=== PATIENT | female | born 1985 | race Caucasian/White ===

== ENCOUNTER 2016-07-02 10:00 | Emergency (ER) | payer BC, OTHER ==
[2016-07-02 10:55] VITALS: BP 123/75
--- NOTE | 2016-07-02 11:24 | UC ---
FLU HPI - HPI Summary HPI Summary: FATIGUE COUGH ACHES SINCE YESTERDAY - History of Current Complaint Chief Complaint: UCGeneralIllness Stated Complaint: FLU SYMPTOMS Time Seen by Provider: 07/02/16 10:59 Hx Obtained From: Patient Hx Last Menstrual Period: 06/11/16 Onset/Duration: Sudden Onset, Lasting Days, Still Present Severity Currently: Moderate Severity Initially: Moderate Associated Signs & Symptoms: Positive: F/C, Myalgia, Cough, Vomiting Related Hx: Possible Flu/Infectious Exposure - Allergy/Home Medications Allergies/Adverse Reactions: Allergies Allergy/AdvReac Type Severity Reaction Status Date / Time Amoxicillin [From Augmentin] Allergy Severe Hives Verified 07/02/16 10:55 Clavulanic Acid Allergy Severe Hives Verified 07/02/16 10:55 [From Augmentin] Penicillins Allergy Severe Hives Verified 07/02/16 10:55 Latex Allergy Intermediate Rash Verified 07/02/16 10:55 PMH/Surg Hx/FS Hx/Imm Hx Previously Healthy: Yes Endocrine History Of: Denies: Diabetes Cardiovascular History Of: Denies: Hypertension, Pacemaker/ICD GI/ History Of: Denies: Renal Disease - Surgical History Surgical History: Yes Surgery Procedure, Year, and Place: TUBAL LIGATION 2011 - Family History Known Family History: Positive: Cardiac Disease, Diabetes, Respiratory Disease - ASTHMA - Social History Occupation: Employed Full-time Lives: With Family Alcohol Use: Rare Substance Use Type: None Smoking Status (MU): Former Smoker Type: Cigarettes Amount Used/How Often: 1/2 pack daily When Did the Patient Quit Smoking/Using Tobacco: 5 months ago Review of Systems Constitutional: Chills, Fatigue Skin: Negative Eyes: Negative ENT: Nasal Discharge Respiratory: Cough Cardiovascular: Negative Gastrointestinal: Vomiting - RESOLVED Genitourinary: Negative Motor: Negative Neurovascular: Negative Musculoskeletal: Negative Neurological: Negative Psychological: Negative All Other Systems Reviewed And Are Negative: Yes Physical Exam Triage Information Reviewed: Yes Appearance: No Pain Distress, Well-Nourished, Ill-Appearing - MILD Vital Signs: Initial Vital Signs Temp 97.9 F 07/02/16 10:50 Pulse 68 07/02/16 10:50 Resp 16 07/02/16 10:50 BP 123/75 07/02/16 10:50 Pulse Ox 100 07/02/16 10:50 Vital Signs Reviewed: Yes Eye Exam: Normal ENT Exam: Normal ENT: Positive: Normal ENT inspection, Hearing grossly normal, Pharynx normal, TMs normal Dental Exam: Normal Neck exam: Normal Neck: Positive: Supple, Nontender, No Lymphadenopathy Respiratory Exam: Normal Respiratory: Positive: Chest non-tender, Lungs clear, Normal breath sounds, No respiratory distress Cardiovascular Exam: Normal Cardiovascular: Positive: RRR, No Murmur Abdominal Exam: Normal Abdomen Description: Positive: Nontender, No Organomegaly Musculoskeletal Exam: Normal Musculoskeletal: Positive: Strength Intact, ROM Intact Neurological Exam: Normal Psychological Exam: Normal Psychological: Positive: Normal Response To Family Skin Exam: Normal Flu Course/Dx - Differential Dx/Diagnosis Differential Diagnosis/HQI/PQRI: Influenza, Upper Respiratory Infection Provider Diagnoses: UPPER RESPIRATORY INFECTION. VIRAL SYNDROME Discharge - Discharge Plan Condition: Stable Disposition: HOME Patient Education Materials: Upper Respiratory Infection (ED), Viral Syndrome ( ED) Forms: *Work Release Referrals: David ARCHULETA,Zackery Winn [Primary Care Provider] -
== END 2016-07-02 11:26 | disposition home or self-care (01) ==
LOC: UCCORT 10:00
DX: J06.9 Acute upper respiratory infection, unspecified (principal); B34.9 Viral infection, unspecified; Z88.1 Allergy status to other antibiotic agents; Z88.0 Allergy status to penicillin; Z87.891 Personal history of nicotine dependence
CPT/HCPCS: 87502; 99211; G0463

== ENCOUNTER 2016-12-14 13:24 | Emergency (ER) | payer SELFPAY ==
[2016-12-14 14:28] VITALS: BP 125/59
--- NOTE | 2016-12-14 15:08 | UC ---
Respiratory Complaint HPI - HPI Summary HPI Summary: was treated for sinusitis for amount 2 months on and off, now has sever cough and tightness in the upper chest. - History of Current Complaint Chief Complaint: UCRespiratory Stated Complaint: COUGH CONGESTION Time Seen by Provider: 12/14/16 14:25 Hx Obtained From: Patient Hx Last Menstrual Period: 12/02/16 Onset/Duration: Gradual Onset, Lasting Weeks Timing: Constant Severity Initially: Mild Severity Currently: Moderate Character: Cough: Nonproductive Aggravating Factors: Exertion, Deep Breaths, Recumbent Position Alleviating Factors: Nothing Associated Signs And Symptoms: Positive: Wheezing, URI - Allergies/Home Medications Allergies/Adverse Reactions: Allergies Allergy/AdvReac Type Severity Reaction Status Date / Time Amoxicillin [From Augmentin] Allergy Severe Hives Verified 07/08/16 18:52 Clavulanic Acid Allergy Severe Hives Verified 07/08/16 18:52 [From Augmentin] Penicillins Allergy Severe Hives Verified 07/08/16 18:52 Latex Allergy Intermediate Rash Verified 07/08/16 18:52 Cephalexin [From Keflex] Allergy Hives Verified 12/14/16 14:30 Sulfa Antibiotics Allergy See Comment Verified 12/14/16 14:29 PMH/Surg Hx/FS Hx/Imm Hx Previously Healthy: Yes - Surgical History Surgical History: Yes Surgery Procedure, Year, and Place: TUBAL LIGATION 2011 - Family History Known Family History: Positive: Cardiac Disease, Diabetes, Respiratory Disease - ASTHMA - Social History Alcohol Use: None Substance Use Type: None Smoking Status (MU): Never Smoked Tobacco Type: Cigarettes Amount Used/How Often: 1/2 pack daily When Did the Patient Quit Smoking/Using Tobacco: 01/2016 - Immunization History Most Recent Influenza Vaccination: no Review of Systems Constitutional: Negative Skin: Negative Eyes: Negative ENT: Ear Ache Respiratory: Shortness Of Breath, Cough Cardiovascular: Negative Gastrointestinal: Negative Genitourinary: Negative Motor: Negative Neurovascular: Negative Musculoskeletal: Negative Neurological: Negative Psychological: Negative Is Patient Immunocompromised?: No All Other Systems Reviewed And Are Negative: Yes Physical Exam Triage Information Reviewed: Yes Appearance: No Pain Distress, Well-Nourished, Ill-Appearing Vital Signs: Initial Vital Signs Temp 98.5 F 12/14/16 14:24 Pulse 82 12/14/16 14:24 Resp 16 12/14/16 14:24 BP 125/59 12/14/16 14:24 Pulse Ox 100 12/14/16 14:24 Vital Signs Reviewed: Yes Eye Exam: Normal ENT Exam: Normal ENT: Positive: Pharynx normal, TM bulging Dental Exam: Normal Neck exam: Normal Neck: Positive: Supple, Nontender, No Lymphadenopathy Respiratory Exam: Normal Respiratory: Positive: Chest non-tender, No respiratory distress, No accessory muscle use, Wheezing, Inspiration Cardiovascular: Positive: RRR, No Murmur, Pulses Normal Abdominal Exam: Normal Abdomen Description: Positive: Nontender, No Organomegaly, Soft Bowel Sounds: Positive: Present Musculoskeletal Exam: Normal Neurological Exam: Normal Psychological Exam: Normal Skin Exam: Normal UC Diagnostic Evaluation - Laboratory O2 Sat by Pulse Oximetry: 100 Respiratory Course/Dx - Course Course Of Treatment: hx obtained, exam performed ,meds reviewed, treated for bronchospasm and serous otitis, patient refused prednisone - Differential Dx/Diagnosis Differential Diagnosis/HQI/PQRI: Bronchitis, Influenza, Laryngitis, Sinusitis Provider Diagnoses: bronchospasm. serous otitis bilateral Discharge - Discharge Plan Condition: Stable Disposition: HOME Prescriptions: Albuterol HFA INHALER* [Ventolin HFA Inhaler*] 2 puff INH Q4H PRN #1 mdi PRN Reason: Cough Patient Education Materials: Bronchospasm (ED), Serous Otitis Media (ED) Referrals: David ARCHULETA,Zackery Winn [Primary Care Provider] - Additional Instructions: 1. take the Daily antihistamine and use the albuterol as needed. 2. Increase fluid intake and self massage your neck to increase lymph flow. 3. Follow up as needed.
== END 2016-12-14 15:20 | disposition home or self-care (01) ==
LOC: UCCORT 13:24
DX: J98.01 Acute bronchospasm (principal); H65.93 Unspecified nonsuppurative otitis media, bilateral; Z88.0 Allergy status to penicillin; Z88.2 Allergy status to sulfonamides; Z88.1 Allergy status to other antibiotic agents; Z91.040 Latex allergy status; Z87.891 Personal history of nicotine dependence
CPT/HCPCS: 99212; G0463

== ENCOUNTER 2017-03-30 09:04 | Emergency (ER) | payer MEDICAID, OTHER ==
[2017-03-30 09:28] VITALS: BP 118/68
--- NOTE | 2017-03-30 10:02 | UC ---
Throat Pain/Nasal Cecilio HPI - HPI Summary HPI Summary: Sore throat, congestion, cough for 5 days. Non smoker. NO fever. Rapid strep was neg at pcp. - History of Current Complaint Chief Complaint: UCRespiratory Stated Complaint: SORE THROAT Time Seen by Provider: 03/30/17 09:44 Hx Obtained From: Patient Hx Last Menstrual Period: 03/03/17 Onset/Duration: Gradual Onset, Lasting Days Severity: Moderate Cough: Nonproductive Associated Signs & Symptoms: Positive: Dysphagia, Hoarseness, Sinus Discomfort, Nasal Discharge. Negative: Fever, Vomiting, Rash - Allergies/Home Medications Allergies/Adverse Reactions: Allergies Allergy/AdvReac Type Severity Reaction Status Date / Time Amoxicillin [From Augmentin] Allergy Severe Hives Verified 03/30/17 09:28 Clavulanic Acid Allergy Severe Hives Verified 03/30/17 09:28 [From Augmentin] Penicillins Allergy Severe Hives Verified 03/30/17 09:28 Latex Allergy Intermediate Rash Verified 03/30/17 09:28 Cephalexin [From Keflex] Allergy Hives Verified 03/30/17 09:28 Sulfa Antibiotics Allergy See Comment Verified 03/30/17 09:28 Home Medications: Home Medications Ibuprofen TAB* [Motrin TAB* 800 MG] 800 mg PO DAILY PRN 03/30/17 [History Confirmed 03/30/17] Tylenol cou 1 dose PO Q4HR PRN 03/30/17 [History Confirmed 03/30/17] PMH/Surg Hx/FS Hx/Imm Hx Previously Healthy: No - fibromyalgia. - Surgical History Surgical History: Yes Surgery Procedure, Year, and Place: TUBAL LIGATION 2011 - Family History Known Family History: Positive: Cardiac Disease, Diabetes, Respiratory Disease - ASTHMA - Social History Lives: With Family Alcohol Use: None Substance Use Type: None Smoking Status (MU): Former Smoker Type: Cigarettes Amount Used/How Often: 1/2 pack daily When Did the Patient Quit Smoking/Using Tobacco: 01/2016 - Immunization History Most Recent Influenza Vaccination: no Review of Systems ENT: Sore Throat, Sinus Congestion, Sinus Pain/Tenderness All Other Systems Reviewed And Are Negative: Yes Physical Exam Triage Information Reviewed: Yes Appearance: Well-Appearing, No Pain Distress, Well-Nourished Vital Signs: Initial Vital Signs Temp 99.9 F 03/30/17 09:22 Pulse 86 03/30/17 09:22 Resp 18 03/30/17 09:22 BP 118/68 03/30/17 09:22 Pulse Ox 100 03/30/17 09:22 Vital Signs Reviewed: Yes Eyes: Positive: Conjunctiva Clear ENT: Positive: Normal ENT inspection, Pharyngeal erythema, Nasal congestion, TMs normal, Uvula midline. Negative: Tonsillar swelling, Tonsillar exudate, Sinus tenderness Neck: Positive: Supple, Nontender, No Lymphadenopathy. Negative: Nuchal Rigidity Respiratory: Positive: Lungs clear, Normal breath sounds, No respiratory distress, No accessory muscle use. Negative: Respiratory distress, Decreased breath sounds, Accessory muscle use, Crackles, Rhonchi, Stridor, Wheezing Cardiovascular: Positive: No Murmur, Pulses Normal Abdomen Description: Positive: No Organomegaly. Negative: Distended, Guarding Musculoskeletal: Positive: ROM Intact, No Edema Neurological: Positive: Alert, Muscle Tone Normal. Negative: Fatigued Psychological: Positive: Age Appropriate Behavior Skin: Negative: rashes Throat Pain/Nasal Course/Dx - Course Assessment/Plan: uri symptoms for 5 days. NO signs of strep throat. NO signs of bacterial infection. Decongestants and supportive care and if not better in 2-3 days start azithromycin. - Differential Dx/Diagnosis Provider Diagnoses: uri Discharge - Discharge Plan Condition: Good Disposition: HOME Prescriptions: Azithromyxin MIKE (NF) [Z-Mike (Zithromax) 250 mg tabs #6] 2 tab PO .TODAY, THEN 1 DAILY #6 tab Patient Education Materials: Upper Respiratory Infection (ED) Referrals: David ARCHULETA,Zackery Winn [Primary Care Provider] - Additional Instructions: start the z pack if not better in 2-3 days. Continue mucinex.
== END 2017-03-30 10:02 | disposition home or self-care (01) ==
LOC: UCCORT 09:04
DX: J06.9 Acute upper respiratory infection, unspecified (principal); M79.7 Fibromyalgia; Z88.0 Allergy status to penicillin; Z88.2 Allergy status to sulfonamides; Z88.1 Allergy status to other antibiotic agents; Z91.040 Latex allergy status; Z87.891 Personal history of nicotine dependence
CPT/HCPCS: 99212; G0463

== ENCOUNTER 2017-04-14 12:41 | Emergency (ER) | payer OTHER ==
--- NOTE | 2017-04-14 13:22 | UC ---
Back Pain HPI - HPI Summary HPI Summary: 31 year old female with back pain . LOW BACK PAIN FOR ONE WEEK. WORSE FOR LAST 3 -4 DAYS. PT STATES SHE WAS LIFTING HEAVY WOOD OVER THE WEEKEND. ALSO FELL ON THE ICE. PT STATES SHE FINISHED Z-PACK LAST WEEK , WHICH CAUSED A GI UPSET. FELT SHE WAS DEHYDRATED WELL. SHE IS WORRRIED THE AZITHROMYCIN AFFECTED HER KIDNEYS. DENIES ANY URINARY SYMPTOMS. Recently was cutting wood, shoveling, had a snow ball fight, fell on the snow and still with some low back pain. been drinking a lot of water. no n/v/d [ End ] - History of Current Complaint Stated Complaint: BACK PAIN Time Seen by Provider: 04/14/17 13:20 Hx Obtained From: Patient Hx Last Menstrual Period: 03/03/17 Onset/Duration: Gradual Onset Timing: Constant Severity Initially: Moderate Severity Currently: Moderate Aggravating Factor(s): Movement, Lifting Alleviating Factor(s): Rest - Allergies/Home Medications Allergies/Adverse Reactions: Allergies Allergy/AdvReac Type Severity Reaction Status Date / Time Amoxicillin [From Augmentin] Allergy Severe Hives Verified 04/14/17 13:21 Clavulanic Acid Allergy Severe Hives Verified 04/14/17 13:21 [From Augmentin] Penicillins Allergy Severe Hives Verified 04/14/17 13:21 Latex Allergy Intermediate Rash Verified 04/14/17 13:21 Cephalexin [From Keflex] Allergy Hives Verified 04/14/17 13:21 Sulfa Antibiotics Allergy See Comment Verified 04/14/17 13:21 PMH/Surg Hx/FS Hx/Imm Hx Previously Healthy: Yes - Surgical History Surgical History: Yes Surgery Procedure, Year, and Place: TUBAL LIGATION 2011 - Family History Known Family History: Positive: Cardiac Disease, Diabetes, Respiratory Disease - ASTHMA - Social History Occupation: Employed Full-time Alcohol Use: None Substance Use Type: None Smoking Status (MU): Former Smoker Type: Cigarettes Amount Used/How Often: 1/2 pack daily When Did the Patient Quit Smoking/Using Tobacco: 01/2016 - Immunization History Most Recent Influenza Vaccination: no Review of Systems Musculoskeletal: Arthralgia, Decreased ROM Is Patient Immunocompromised?: No All Other Systems Reviewed And Are Negative: Yes Physical Exam Triage Information Reviewed: Yes Appearance: Well-Appearing, No Pain Distress, Well-Nourished Eye Exam: Normal ENT Exam: Normal Dental Exam: Normal Neck exam: Normal Neck: Positive: 1 Respiratory Exam: Normal Cardiovascular Exam: Normal Abdominal Exam: Normal Abdomen Description: Positive: Nontender, No Organomegaly Musculoskeletal Exam: Normal Neurological Exam: Normal Neurological: Positive: Other: - Right parspinal lumbar tenderness to palpation. neg SLR. no step off. no sp tenderness. strength 5/5, sensation intact. Psychological Exam: Normal Skin Exam: Normal Back Pain Course/Dx - Course Course Of Treatment: u/a neg. no urinary Sx of concern. cont with PO hydration, APAP, spariong NSAIDs and heat. RTo if any concerns. - Differential Dx/Diagnosis Differential Diagnosis/HQI/PQRI: Fracture, Herniated Disc, Strain, Sprain Provider Diagnoses: lumbar strain Discharge - Discharge Plan Condition: Good Disposition: HOME Patient Education Materials: Low Back Strain (ED) Forms: *Work Release Referrals: DUNIA Reyes [Primary Care Provider] - 4 Days
[2017-04-14 13:32] VITALS: BP 117/67
== END 2017-04-14 13:53 | disposition home or self-care (01) ==
LOC: UCCORT 12:41
DX: S33.5XXA Sprain of ligaments of lumbar spine, initial encounter (principal); Z87.891 Personal history of nicotine dependence; W00.0XXA Fall on same level due to ice and snow, initial encounter; Y92.9 Unspecified place or not applicable; Z88.0 Allergy status to penicillin; Z88.2 Allergy status to sulfonamides
CPT/HCPCS: 81003; 99211; G0463

== ENCOUNTER 2017-11-10 11:02 | Emergency (ER) | payer OTHER ==
[2017-11-10 11:15] VITALS: BP 122/78
--- NOTE | 2017-11-10 11:40 | UC ---
Dizzy HPI HPI Summary: IN-ROOM NOTE: A 32 y/o F presents to [facility] [place] with c/o dizziness onset two days ago. She states the dizziness is similar to lightheadedness, she says it is not a room-spinning dizziness. Associated sx: vomiting due to dizziness, suprapubic abd pain, menstruating for approx 2 weeks which she states is abnormal. She states the bleeding was not fresh blood. She also has a known hiatel hernia. PMHx: ovarian cysts, sporadic and very heavy periods; tubal ligation in 2011. Denies being . Denies nausea, SOB, tinnitus. She states feeling healthy otherwise. Pt is scheduled for a partial hysterectomy and exploratory surgery on Nov 26. Pt recently ran a marathon. Former smoker. Occ. ETOH. NOTE: Vital signs stable. BP 122/78. Pulse ox: 100. Abd pain is 3/10. PMHx: ovarian cysts. Multiple allergies. Pt is not on anti-HTN medication. Elevated BP probably secondary to condition. NURSE'S NOTE: Patient states she has had her period for 2 weeks, which is abnormal for her. She started to feel dizzy on Tuesday and yesterday she felt light-headed. This morning she vomited and states she is dizzy again with abdominal pain and cramping. She states she is scheduled for a partial hysterectomy next month. - History Of Current Complaint Chief Complaint: UCAbdominalPain Stated Complaint: DIZZY,VOMITING Time Seen by Provider: 11/10/17 11:32 Hx Obtained From: Patient Hx Last Menstrual Period: 10/29/17 Onset/Duration: Lasting Days, Still Present Timing: Constant Severity Initially: Mild Severity Currently: Mild Pain Intensity: 3 Pain Scale Used: 0-10 Numeric Character: Lightheaded, Weak, Dizzy Associated Signs And Symptoms: Positive: Vomiting. Negative: Nausea, Tinnitus, SOB - Allergies/Home Medications Allergies/Adverse Reactions: Allergies Allergy/AdvReac Type Severity Reaction Status Date / Time amoxicillin [From Augmentin] Allergy Severe Hives Verified 11/10/17 11:20 clavulanic acid Allergy Severe Hives Verified 11/10/17 11:20 [From Augmentin] Penicillins Allergy Severe Hives Verified 11/10/17 11:20 latex Allergy Intermediate Rash Verified 11/10/17 11:20 cephalexin [From Keflex] Allergy Hives Verified 11/10/17 11:20 Sulfa (Sulfonamide Allergy See Comment Verified 11/10/17 11:20 Antibiotics) PMH/Surg Hx/FS Hx/Imm Hx Previously Healthy: No - pos: ovarian cysts Other Cardiovascular History: neg: HTN - Surgical History Surgical History: Yes Surgery Procedure, Year, and Place: TUBAL LIGATION -2011 - Family History Known Family History: Positive: Cardiac Disease, Hypertension, Diabetes, Respiratory Disease - ASTHMA - Social History Occupation: Employed Full-time Lives: With Family Alcohol Use: None Substance Use Type: None Smoking Status (MU): Former Smoker Type: Cigarettes Amount Used/How Often: 1/2 pack daily When Did the Patient Quit Smoking/Using Tobacco: 01/2016 - Immunization History Most Recent Influenza Vaccination: no Review of Systems ENT: Negative - tinnitus Respiratory: Negative - SOB Gastrointestinal: Negative - nausea, Abdominal Pain, Vomiting Genitourinary: Vaginal/Penile Discharge - bleeding approx 2 weeks Neurological: Other - pos: dizziness All Other Systems Reviewed And Are Negative: Yes - Comments Additional Review of Systems Comments: POSITIVE: DIZZINESS, ABD PAIN, VOMITING, EXTENDED MENSES (2 WEEKS) NEGATIVE: NAUSEA, SOB, TINNITUS Physical Exam - Summary Physical Exam Summary: Appearance: The patient is well-appearing, is in no pain distress, and is well- nourished. PATIENT CONVERSES NORMALLY. Eyes: Conjunctiva are clear. ENT: The hearing is grossly normal, the pharynx is normal, and the TMs are normal. There is no muffled or hoarse voice. Neck: The neck is supple and there is no lymphadenopathy. Respiratory: The chest is nontender. The lungs are clear, there are normal breath sounds, and there is no respiratory distress. Cardiovascular: Heart is regular rate and rhythm. There is no murmur. Abdomen: The abdomen is soft. There is no organomegaly. THERE IS TENDERNESS OVER BILAT LOWER QUADRANTS, CONSISTENT WITH MENSES DISCOMFORT. ABD TENDER TO PALPATION ON R WORSE THAN L. SIGNIFICANT POINT TENDERNESS OF RLQ WITH PALPATION. Bowel sounds: PRESENT Musculoskeletal: Strength is intact. The patient moves all extremities. Neurological: The patient is alert. Psychological: The patient displays age appropriate behavior Skin: Negative for rashes Triage Information Reviewed: Yes Vital Signs: Initial Vital Signs Temp 98.6 F 11/10/17 11:09 Pulse 56 11/10/17 11:09 Resp 16 11/10/17 11:09 BP 122/78 11/10/17 11:09 Pulse Ox 100 11/10/17 11:09 Vital Signs Reviewed: Yes Dizzy Course/Dx - Course Course Of Treatment: Medications have been included in the original chart and reviewed. A 32 y/o F with abnormal uterine bleeding for two weeks comes to [facility] with dizziness, vomiting, and abd pain. Pt has significant tenderness with palpation to RLQ. I discussed with pt, the possibility this is an exacerbation of her normal menses, but it could be a ruptured cyst or anemia or dehydration. Patient has chosen to be discharged and get a ride to the ED for further evaluation and treatment as needed. Orthostatics taken by nurse and reviewed. - Differential Dx/Diagnosis Provider Diagnoses: 1. Bilateral lower abd pain, R greater than L. 2. Abnormal uterine bleeding, menorrhagia and dysmenorrhea. 3. Dizziness. Discharge - Sign-Out/Discharge Documenting (check all that apply): Patient Departure - DC to ED All imaging exams completed and their final reports reviewed: No Studies - Discharge Plan Condition: Stable Disposition: HOME-RECOMMEND TO ED Patient Education Materials: Dysmenorrhea (ED), Menorrhagia (ED) Referrals: David ARCHULETA,Zackery Winn [Primary Care Provider] - Additional Instructions: PLEASE SEEK CARE AT THE EMERGENCY DEPARTMENT IF SYMPTOMS WORSEN OR IF NEW SYMPTOMS DEVELOP. FOLLOW UP WITH YOUR PRIMARY CARE PHYSICIAN. WE DISCUSSED: Your current problem may be a worsening of your chronic abnormal uterine bleeding. However, as we discussed, because of your dizziness, as well as your right lower quadrant abdominal pain and your extended history of bleeding, as well as your history of ovarian cysts and tubal ligation, further evaluation would be prudent. A family member will drive, as planned. I will be at the [facility] in 2 days; call me with any questions or concerns. - Billing Disposition and Condition Condition: STABLE Disposition: Home-Recommend to ED - Attestation Statements Document Initiated by Scribe: Yes Documenting Scribe: Cherie Aly Provider For Whom Scribe is Documenting (Include Credential): Richard Willams MD Scribe Attestation: Lai, Cherie Aly, scribed for Richard Willams MD on 11/10/17 at 1225. Scribe Documentation Reviewed: Yes Provider Attestation: The documentation as recorded by the Cherie madrigal accurately reflects the service I personally performed and the decisions made by me, Richard Willams MD
== END 2017-11-10 12:35 | disposition home health service (06) ==
LOC: UCEAST 11:02
DX: R42 Dizziness and giddiness (principal); N93.9 Abnormal uterine and vaginal bleeding, unspecified; N94.6 Dysmenorrhea, unspecified; N92.0 Excessive and frequent menstruation with regular cycle; R10.32 Left lower quadrant pain; R10.31 Right lower quadrant pain; K44.9 Diaphragmatic hernia without obstruction or gangrene; R11.10 Vomiting, unspecified; Z88.0 Allergy status to penicillin; Z88.1 Allergy status to other antibiotic agents; Z91.040 Latex allergy status; Z88.2 Allergy status to sulfonamides; Z87.891 Personal history of nicotine dependence
CPT/HCPCS: 99212; G0463

== ENCOUNTER 2017-11-10 13:22 | Emergency (ER) | payer OTHER ==
[2017-11-10] MEDS ORDERED: NS 0.9% 1000 ML* 1,000 ML IV ONE (14:09)
--- NOTE | 2017-11-10 14:09 | ED ---
Abdominal Pain/Female - HPI Summary HPI Summary: This patient is a 32 year old F presenting to [facility] accompanied by her mother with a chief complaint of sharp waxing and waning RLQ abd pain since this AM, which is currently 3/10, but is 10/10 at its worst. She endorses menstruation for 10 days; typically it lasts 7 days. SHx tubal ligation 2011. PMHx ovarian cysts, hiatal hernia, no PMHx cholecystectomy, appendectomy. She notes that movement aggravates sx. She also endorses cold sweats, diarrhea, nausea, dizziness, decreased appetite, and back pain, but it may be secondary to running a marathon last week, or a fall onto her buttocks. She denies urinary sx , hematochezia and vaginal discharge. She notes that sx are different today from previous pain from cysts. - History of Current Complaint Chief Complaint: EDAbdPain Stated Complaint: DIZZINESS/ABD PAIN/VOMITING Time Seen by Provider: 11/10/17 13:42 Hx Obtained From: Patient Hx Last Menstrual Period: 10/29/17 Onset/Duration: Sudden Onset, Lasting Hours, Still Present Timing: Intermittent Episode Lasting Severity Initially: Moderate Severity Currently: Mild Pain Intensity: 2 Pain Scale Used: 0-10 Numeric Location: Discrete At: RLQ Radiates: Yes Radiates to: Back - Maybe, but notes it could be secondary to running a marathon last week, or falling onto her buttocks. Character: Sharp, Cramping Aggravating Factor(s): Movement Alleviating Factor(s): Nothing Associated Signs and Symptoms: Positive: Diaphoresis, Back Pain, Decreased Appetite, Vaginal Bleeding, Nausea, Diarrhea. Negative: Fever, Urinary Symptoms , Vaginal Discharge, Vomiting Allergies/Adverse Reactions: Allergies Allergy/AdvReac Type Severity Reaction Status Date / Time amoxicillin [From Augmentin] Allergy Severe Hives Verified 11/10/17 14:25 clavulanic acid Allergy Severe Hives Verified 11/10/17 14:25 [From Augmentin] Penicillins Allergy Severe Hives Verified 11/10/17 14:25 latex Allergy Intermediate Rash Verified 11/10/17 14:25 cephalexin [From Keflex] Allergy Hives Verified 11/10/17 14:25 Sulfa (Sulfonamide Allergy See Comment Verified 11/10/17 14:25 Antibiotics) PMH/Surg Hx/FS Hx/Imm Hx Endocrine/Hematology History: Denies: Hx Diabetes, Hx Thyroid Disease Cardiovascular History: Denies: Hx Hypertension, Hx Pacemaker/ICD Respiratory History: Denies: Hx Asthma, Hx Chronic Obstructive Pulmonary Disease (COPD) GI History: Denies: Hx Ulcer History: Reports: Other Problems/Disorders - frequent ovarian cysts Denies: Hx Renal Disease Musculoskeletal History: Reports: Hx Rheumatoid Arthritis Sensory History: Denies: Hx Legally Blind, Hx Deafness, Hx Hearing Aid Opthamlomology History: Denies: Hx Legally Blind EENT History: Denies: Hx Deafness Psychiatric History: Denies: Hx Autism, Hx Panic Disorder, Hx Schizophrenia - Surgical History Surgery Procedure, Year, and Place: TUBAL LIGATION -2012 - Immunization History Immunizations Up to Date: Yes Infectious Disease History: No Infectious Disease History: Denies: Hx Hepatitis, Hx Human Immunodeficiency Virus (HIV), Traveled Outside the [place] in Last 30 Days - Family History Known Family History: Positive: Cardiac Disease, Hypertension, Diabetes, Respiratory Disease - ASTHMA - Social History Occupation: Employed Full-time Lives: With Family Alcohol Use: Occasionally Substance Use Type: Reports: None Smoking Status (MU): Former Smoker Type: Cigarettes Amount Used/How Often: 1/2 pack daily Review of Systems Positive: Chills, Skin Diaphoresis. Negative: Fever Positive: Abdominal Pain, Diarrhea, Nausea. Negative: Other - hematochezia Positive: other - abnormally long duration menstruation (10 days and counting) All Other Systems Reviewed And Are Negative: Yes Physical Exam - Summary Physical Exam Summary: General: well-appearing, no pain distress Skin: warm, color reflects adequate perfusion, dry Head: normal Eyes: EOMI, [place] ENT: normal Neck: supple, non-tender Respiratory: CTA, breath sounds present Cardiovascular: RRR Abdomen: soft, mild tenderness in RLQ Bowel: present Musculoskeletal: normal, strength/ROM intact Neurological: sensory/motor intact, A&O x3 Psychological: affect/mood appropriate Triage Information Reviewed: Yes Vital Signs On Initial Exam: Initial Vitals Temp Pulse Resp BP Pulse Ox 97.9 F 65 17 129/71 100 11/10/17 13:27 11/10/17 13:27 11/10/17 13:27 11/10/17 13:27 11/10/17 13:27 Vital Signs Reviewed: Yes Diagnostics - Vital Signs Vital Signs Temp Pulse Resp BP Pulse Ox 11/10/17 13:27 97.9 F 65 17 129/71 100 - Laboratory Result Diagrams: 11/10/17 14:16 11/10/17 14:16 Lab Statement: Any lab studies that have been ordered have been reviewed, and results considered in the medical decision making process. - Ultrasound No standard instances Ultrasound Interpretation: No Acute Changes Ultrasound Interpretation Completed By: Radiologist - THE APPENDIX WAS NOT VISUALIZED LIMITING THE STUDY, DEPENDING ON THE PATIENT'S CLINICAL STATUS CONSIDER A CT OF THE ABDOMEN AND PELVIS WITH INTRAVENOUS AND ORAL CONTRAST FOR FURTHER EVALUATION. Dr. Salcido has reviewed this report. - Additional Comments Diagnostic Additional Comments: US TV: Negative exam per radiologist. Dr. Salcido has reviewed this report. Re-Evaluation - Re-Evaluation First Eval Re-Evaluation Time: 17:00 Change: Unchanged Comment: Informed of lab results, possible , told to follow up in 3 days. Abdominal Pain Fem Course/Dx - Course Course Of Treatment: DISCUSSED RESULTS WITH THE PATIENT. DUE TO INDETERMINATE HCG OF [address] AND THIS NEEDS TO BE RECHECKED BUY HER OBGYN. CRP AND WBC NOT ELEVATED. NO WBC IN URINE. NO HYDRONEPHROSIS. NORMAL BLOOD FLOW TO OVARIES AND NO PELVIC FREE FLUID. DISCUSSED NEED FOR RE EVALUATION BY OBGYN AND NEED TO RETURN TO ED IF SX WORSEN; THE PATIENT AGREED. - Diagnoses Provider Diagnoses: Right lower quadrant abdominal pain, Dizziness, Lightheadedness, Elevated serum hCG Discharge - Sign-Out/Discharge Documenting (check all that apply): Patient Departure - Discharge Plan Condition: Stable Disposition: HOME Prescriptions: Meclizine HCl [Motion Sickness Relief] 25 mg PO Q6H PRN #15 tablet PRN Reason: Dizziness Patient Education Materials: Abdominal Pain (ED), Lightheadedness (ED), Dizziness (ED) Referrals: Zackery Handy [Primary Care Provider] - Chema Manjarrez MD [Medical Doctor] - Additional Instructions: FOLLOW UP WITH YOUR PRIMARY CARE DOCTOR AND, DR MANJARREZ, YOUR OBGYN. GET YOUR HCG RECHECKED WITH DR MANJARREZ IN 2-3 DAYS. GO TO THE EMERGENCY DEPARTMENT FOR ANY WORSENING OF YOUR CONDITION; PAIN, FEVER , YOU FEEL LIKE PASSING OUT, YOU FEEL ILL OR QUESTIONS OR CONCERNS. - Billing Disposition and Condition Condition: STABLE Disposition: Home - Attestation Statements Document Initiated by Scribe: Yes Documenting Scribe: Magan Ambrocio Provider For Whom Rene is Documenting (Include Credential): Dr. Crow Salcido MD Scribe Attestation: I, Magan Ambrocio scribed for Dr. Crow Salcido MD on 11/10/17 at 1938. Scribe Documentation Reviewed: Yes Provider Attestation: The documentation as recorded by the Magan madrigal accurately reflects the service I personally performed and the decisions made by me, Dr. Crow Salcido MD
[2017-11-10 14:29] LABS: ABS Basophils 0.1 10^3/ul (0-0.2); ABS Eosinophils 0.1 10^3/ul (0-0.6); ABS Lymphocytes 2.1 10^3/ul (1.0-4.8); ABS Monocytes 0.4 10^3/ul (0-0.8); ABS Neutrophils 7.5 10^3/ul (1.5-7.7); ABS Nucleated RBC 0 10^3/ul; Eosinophil % 1.1 % (0-6); Hematocrit 39 % (35-47); Hemoglobin 13.3 g/dl (12.0-16.0); Lymphocyte % 20.9 % (25-47); Mean Corpuscular HGB Conc 34 g/dl (31-36); Mean Corpuscular Hemoglobin 30 pg (27-31); Mean Corpuscular Volume 88 fL (80-97); Mean Platelet Volume 8.8 um3 (7.4-10.4); Nucleated Red Blood Cells % 0; Platelet Count 256 10^3/ul (150-450); Red Cell Distribution Width 13 % (10.5-15); White Blood Count 10.3 10^3/ul (3.5-10.8)
[2017-11-10 14:44] LABS: EGFR Non-African American 84.9 (>60)
--- NOTE | 2017-11-10 15:18 | RAD ---
INDICATION: Right lower quadrant pain. COMPARISON: There are no relevant prior studies available for comparison. TECHNIQUE: Multiple real-time images of the right lower quadrant were obtained using a graded compression technique. FINDINGS: No free intraperitoneal fluid or localized fluid collections are seen. The appendix was not visualized limiting the study. IMPRESSION: THE APPENDIX WAS NOT VISUALIZED LIMITING THE STUDY, DEPENDING ON THE PATIENT'S CLINICAL STATUS CONSIDER A CT OF THE ABDOMEN AND PELVIS WITH INTRAVENOUS AND ORAL CONTRAST FOR FURTHER EVALUATION.
--- NOTE | 2017-11-10 15:21 | RAD ---
INDICATION: Right lower quadrant pain. COMPARISON: Comparison is made with a prior study from June 09, 2015. TECHNIQUE: Multiple real-time transvaginal images of the pelvis were obtained. FINDINGS: The uterus is normal in size, shape and echogenicity. The uterus measured 10.0 x 4.0 x 4.5 cm. The endometrial echo measured 0.6 cm in thickness. The right ovary measured 3.7 x 2.1 x 2.5 cm. The left ovary measured 4.7 x 2.2 x 2.8 cm. There is vascular flow within both ovaries. There are multiple small bilateral follicular cysts. The largest cyst is located within the left ovary measuring 2.3 x 1.5 x 1.6 cm. No free intraperitoneal fluid is seen. IMPRESSION: NEGATIVE EXAM.
[2017-11-10 16:54] LABS: Urine Appearance Cloudy; Urine Blood 2+ (Negative); Urine Color Yellow; Urine Ketones 1+ (Negative); Urine Protein Negative (Negative); Urine Red Blood Cell 2+(6-10/hpf) (Absent); Urine Specific Gravity 1.015 (1.010-1.030); Urine Urobilinogen Negative (Negative); Urine White Blood Cell Trace(0-5/hpf) (Absent)
--- NOTE | 2017-11-10 18:01 | RAD ---
INDICATION: Right flank pain COMPARISON: None TECHNIQUE: Longitudinal and transverse scans of the right kidney were obtained. FINDINGS: Right kidney: The right kidney is normal in size and echogenicity. There is a simple cyst in the midpole region measuring 0.8 cm No other renal masses, calculi, or hydronephrosis is seen. The right kidney measures 9.7 x 3.2 x 5.3 cm. Other: None IMPRESSION: INCIDENTAL MID POLE RIGHT RENAL CYST, OTHERWISE NEGATIVE.
[2017-11-10 19:38] VITALS: BP 122/65
== END 2017-11-10 19:36 | disposition home or self-care (01) ==
LOC: ED 13:22
DX: R10.31 Right lower quadrant pain (principal); R42 Dizziness and giddiness; R79.89 Other specified abnormal findings of blood chemistry; N83.02 Follicular cyst of left ovary; N83.01 Follicular cyst of right ovary; N28.1 Cyst of kidney, acquired; Z98.51 Tubal ligation status; Z87.891 Personal history of nicotine dependence; Z88.3 Allergy status to other anti-infective agents; Z88.0 Allergy status to penicillin; Z88.2 Allergy status to sulfonamides
CPT/HCPCS: 36415; 76705; 76775; 76830; 80053; 81003; 81015; 83605; 83690; 84702; 85025; 86140; 87086; 99283

== ENCOUNTER 2019-01-02 08:16 | Emergency (ER) | payer BC, OTHER ==
[2019-01-02 08:40] VITALS: BP 114/74
--- NOTE | 2019-01-02 10:09 | UC ---
Cardiac HPI - HPI Summary HPI Summary: anterior chest wall pain x 1 week pain is 6 out of 10 , constant , worse with movement, breathing, coughing and touch better with Tylenol / ibuprofen + cold symptoms for 10 days with runny nose, chest congestion, sinus pain and pressure no fever, no chills, no sob - History of Current Complaint Chief Complaint: UCChestPain Stated Complaint: CONGESTION FATIGUE Time Seen by Provider: 01/02/19 08:39 Hx Obtained From: Patient Hx Last Menstrual Period: 12/26/18 Onset/Duration: Gradual Onset, Lasting Weeks - 1, Still Present Timing: Constant Initial Severity: Moderate Current Severity: Moderate Pain Intensity: 5 Chest Pain Location: Upper Sternal, Lower Sternal, Left Anterior, Right Anterior Aggravating Factor(s): Exertion, Deep Breaths Alleviating Factor(s): Rest, Medication - ibuprofen Associated Signs & Symptoms: Positive: Chest Pain. Negative: Fever, Cough - Allergy/Home Medications Allergies/Adverse Reactions: Allergies Allergy/AdvReac Type Severity Reaction Status Date / Time latex Allergy Intermediate Rash Verified 01/02/19 08:40 cephalexin [From Keflex] Allergy Hives Verified 01/02/19 08:40 Sulfa (Sulfonamide Allergy See Comment Verified 01/02/19 08:40 Antibiotics) amoxicillin [From Augmentin] AdvReac Severe Hives Verified 01/02/19 08:40 clavulanic acid AdvReac Severe Hives Verified 01/02/19 08:40 [From Augmentin] Penicillins AdvReac Severe Hives Verified 01/02/19 08:40 PMH/Surg Hx/FS Hx/Imm Hx Previously Healthy: Yes - Surgical History Surgical History: Yes Surgery Procedure, Year, and Place: TUBAL LIGATION -2011 - Family History Known Family History: Positive: Cardiac Disease, Hypertension, Diabetes, Respiratory Disease - ASTHMA - Social History Alcohol Use: Rare Substance Use Type: None Smoking Status (MU): Former Smoker Type: Cigarettes Amount Used/How Often: 1/2 pack daily When Did the Patient Quit Smoking/Using Tobacco: 01/2016 - Immunization History Most Recent Influenza Vaccination: no Review of Systems All Other Systems Reviewed And Are Negative: Yes Constitutional: Negative: Negative Skin: Negative: Negative Eyes: Negative: Negative ENT: Positive: Nasal Discharge, Sinus Congestion Respiratory: Positive: Negative. Negative: Shortness Of Breath, Cough Cardiovascular: Positive: Chest Pain Gastrointestinal: Positive: Negative Is Patient Immunocompromised?: No Physical Exam Triage Information Reviewed: Yes Appearance: Well-Appearing, No Pain Distress, Well-Nourished Vital Signs: Initial Vital Signs Temp 98.4 F 01/02/19 08:35 Pulse 78 01/02/19 08:35 Resp 18 01/02/19 08:35 BP 114/74 01/02/19 08:35 Pulse Ox 100 01/02/19 08:35 Vital Signs Reviewed: Yes Eye Exam: Normal Eyes: Positive: Conjunctiva Clear ENT: Positive: Normal ENT inspection, Hearing grossly normal, Pharynx normal Neck: Positive: Supple, Nontender, No Lymphadenopathy Respiratory: Positive: Lungs clear, Normal breath sounds, No respiratory distress Cardiovascular: Positive: RRR, No Murmur, Other: - anterior chest wall tenderness Abdominal Exam: Normal Musculoskeletal Exam: Normal - Clinical Impression Provider Diagnosis: Costochondritis, acute Discharge ED - Sign-Out/Discharge Documenting (check all that apply): Patient Departure All imaging exams completed and their final reports reviewed: No Studies - Discharge Plan Condition: Stable Disposition: HOME Prescriptions: Naproxen [Naproxen 500 mg tab] 500 mg PO BID #20 tablet Patient Education Materials: Costochondritis (ED) Referrals: Zackery Hernandez PA [Primary Care Provider] - 7 Days - Billing Disposition and Condition Condition: STABLE Disposition: Home
== END 2019-01-02 08:59 | disposition home or self-care (01) ==
LOC: UCCORT 08:16
DX: M94.0 Chondrocostal junction syndrome [Tietze] (principal); R09.89 Other specified symptoms and signs involving the circulatory and respiratory systems; R09.81 Nasal congestion; Z87.891 Personal history of nicotine dependence; Z88.2 Allergy status to sulfonamides; Z88.0 Allergy status to penicillin; Z91.040 Latex allergy status; Z88.1 Allergy status to other antibiotic agents
CPT/HCPCS: 99212; G0463